=== PATIENT | female | born 1990 | race Caucasian/White ===

== ENCOUNTER 2020-02-02 19:35 | Emergency (ER) | payer MEDICAID, OTHER ==
[2020-02-02 19:42] VITALS: BP 165/94
[2020-02-02] MEDS ORDERED: DEXAMETHASONE 10 MG/ML VIAL PO STA (20:23)
[2020-02-02] MEDS ORDERED: KETOROLAC 60 MG/2 ML VIAL IM STA (20:23)
--- NOTE | 2020-02-02 20:27 | ED Physician Documentation ---
History of Present Illness - Stated complaint Stated Complaint: RT SIDED LEG PX - Chief complaint Chief Complaint: Ext Problem - History obtained from History obtained from: Patient - History of Present Illness Timing: How many days ago (2-3) Pain level max: 7 Pain level now: 5 Improved by: Rest Worsened by: Walking - Additonal information Additional information: 29-year-old female presents to the emergency department complaining of right low back pain that radiates down the right leg. Worse with movement and better with rest. No loss of bowel or bladder control. No fevers. No IV drug use. No possibility of . History of PCOS. No vaginal bleeding or discharge. Review of Systems Constitutional: denies: Fever, Chills Respiratory: denies: Cough GI: denies: Abdominal Pain, Nausea, Vomiting, Diarrhea Skin: denies: Rash Musculoskeletal: denies: Neck pain Neurologic: denies: Focal weakness, Numbness PD PAST MEDICAL HISTORY - Past Medical History Cardiovascular: Hypertension Respiratory: Asthma Endocrine/Autoimmune: Type 2 diabetes : None Psych: None Musculoskeletal: None - Past Surgical History Past Surgical History: No - Present Medications Home Medications: Ambulatory Orders Medication Instructions Recorded Confirmed Albuterol 2.5 mg INH Q4H PRN #30 neb 12/29/15 Albuterol Sulf [Ventolin Hfa 2 puffs INH Q4HR PRN #1 inhaler 05/27/16 Inhaler] Ondansetron Odt [Zofran] 4 mg TL Q6H PRN #14 tablet 05/27/16 metFORMIN [Glucophage] 500 mg PO BID #60 tablet 05/27/16 Meloxicam [Mobic] 15 mg PO DAILY PRN #20 tablet 02/02/20 predniSONE [Deltasone] 10 mg PO [id number] #42 tab 02/02/20 - Allergies Allergies/Adverse Reactions: Allergies Allergy/AdvReac Type Severity Reaction Status Date / Time No Known Drug Allergies Allergy Verified 02/02/20 19:38 - Social History Does the pt smoke?: No Smoking Status: Never smoker Does the pt drink ETOH?: Yes Does the pt have substance abuse?: Yes - Immunizations Immunizations are current?: No - POLST Patient has POLST: No PD ED PE NORMAL - Vitals Vital signs reviewed: Yes - General General: Alert and oriented X 3, No acute distress, Well developed/nourished - HEENT HEENT: Moist mucous membranes - Neck Neck: Supple, no meningeal sign - Cardiac Cardiac: RRR, Strong equal pulses - Respiratory Respiratory: No respiratory distress, Clear bilaterally - Abdomen Abdomen: Soft, Non tender, Non distended - Back Back: Other (No midline tenderness to palpation over the cervical, thoracic or lumbar spines. She is tender to palpation over the right SI joint. This reproduces her pain.) - Derm Derm: Warm and dry - Extremities Extremities: Normal ROM s pain - Neuro Neuro: Alert and oriented X 3, No motor deficit, No sensory deficit, Other (Normal bilateral lower extremity patellar and ankle jerk reflexes. Normal great toe extension bilaterally. no saddle anesthesia) - Psych Psych: Normal mood, Normal affect Results - Vitals Vitals: Vital Signs - 24 hr 02/02/20 19:38 Temperature 36.5 C Heart Rate 108 H Respiratory 14 Rate Blood Pressure 165/94 H O2 Saturation 98 Oxygen O2 Source Room air PD MEDICAL DECISION MAKING - ED course Complexity details: considered differential (No cauda equina, no spinal epidural abscess, no fracture, no aortic dissection or evidence of aneursym rupture), d/w patient ED course: Patient with what appears to be sacroiliitis on the right side. Given Toradol, dexamethasone. We will start on prednisone and meloxicam for home. No evidence of cauda equina, epidural abscess. No evidence of fracture. Patient counseled regarding signs and symptoms for which I believe and urgent re-evaluation would be necessary. Patient with good understanding of and agreement to plan and is comfortable going home at this time This document was made in part using voice recognition software. While efforts are made to proofread this document, sound alike and grammatical errors may occur. Departure - Departure Disposition: 01 Home, Self Care Clinical Impression: Sacroiliitis Sciatica Qualifiers: Laterality: right Qualified Code(s): M54.31 - Sciatica, right side Condition: Good Instructions: ED Sacroiliitis, ED Sciatica Follow-Up: Your,doctor in 1 week [Other] Prescriptions: Meloxicam [Mobic] 15 mg PO DAILY PRN #20 tablet PRN Reason: pain predniSONE [Deltasone] 10 mg PO [id number] #42 tab Comments: Use the steroids and meloxicam as prescribed. This should improve over the next few days. Return if you worsen. It is important that we decrease the inflammation in your back. Follow-up with your doctor for further care. Discharge Date/Time: 02/02/20 20:47
== END 2020-02-02 20:47 | disposition home or self-care (01) ==
LOC: ED 19:35
DX: M46.1 Sacroiliitis, not elsewhere classified (principal); M54.41 Lumbago with sciatica, right side; I10 Essential (primary) hypertension; E11.9 Type 2 diabetes mellitus without complications; Z79.84 Long term (current) use of oral hypoglycemic drugs
CPT/HCPCS: 96372; 99283; 99284

== ENCOUNTER 2020-02-27 06:39 | Emergency (ER) | payer OTHER ==
--- NOTE | 2020-02-27 07:41 | ED Physician Documentation ---
History of Present Illness - Stated complaint Stated Complaint: BACK PX - Chief complaint Chief Complaint: Back Pain - History obtained from History obtained from: Patient - Additonal information Additional information: She comes emergency department complaining of worsening back pain over the last week. Patient states she has underlying back pain which started about a month ago, but this feels somewhat different. She states she has a pressure in her low abdomen and in her right flank. She does also feel the pressure somewhat in her legs, in addition to the pain in her back that shoots down her right leg. Patient states that the shooting pain is been going on since last month, but the pressure is new. Patient denies fevers or chills. No abdominal pain per se. No nausea or vomiting. Patient denies any dysuria. No gross hematuria. Patient denies new injury. She thinks she might be . No other complaints at this time. Patient denies loss of bowel or bladder control. Review of Systems Ten Systems: 10 systems reviewed and negative Constitutional: reports: Reviewed and negative Eyes: reports: Reviewed and negative Ears: reports: Reviewed and negative Nose: reports: Reviewed and negative Throat: reports: Reviewed and negative Cardiac: reports: Reviewed and negative Respiratory: reports: Reviewed and negative GI: reports: Reviewed and negative : reports: Reviewed and negative Skin: reports: Reviewed and negative Musculoskeletal: reports: Back pain Neurologic: reports: Reviewed and negative Psychiatric: reports: Reviewed and negative Endocrine: reports: Reviewed and negative Immunocompromised: reports: Reviewed and negative PD PAST MEDICAL HISTORY - Past Medical History Past Medical History: Yes Cardiovascular: Hypertension Respiratory: Asthma Endocrine/Autoimmune: Type 2 diabetes : None Psych: None Musculoskeletal: None - Past Surgical History Past Surgical History: No - Present Medications Home Medications: Ambulatory Orders Medication Instructions Recorded Confirmed Albuterol 2.5 mg INH Q4H PRN #30 neb 12/29/15 02/27/20 Albuterol Sulf [Ventolin Hfa 2 puffs INH Q4HR PRN #1 inhaler 05/27/16 02/27/20 Inhaler] Ondansetron Odt [Zofran] 4 mg TL Q6H PRN #14 tablet 05/27/16 02/27/20 metFORMIN [Glucophage] 500 mg PO BID #60 tablet 05/27/16 02/27/20 Meloxicam [Mobic] 15 mg PO DAILY PRN #20 tablet 02/02/20 02/27/20 Cyclobenzaprine [Flexeril] 10 mg PO TID PRN #10 tablet 02/27/20 Hydrocodone/Acetaminophen 1 - 2 each PO Q6H PRN #10 tablet 02/27/20 [Hydrocodon-Acetaminophen 5-325] Ibuprofen [Motrin] 800 mg PO Q8H PRN #30 tablet 02/27/20 - Allergies Allergies/Adverse Reactions: Allergies Allergy/AdvReac Type Severity Reaction Status Date / Time No Known Drug Allergies Allergy Verified 02/27/20 07:00 - Social History Does the pt smoke?: No Smoking Status: Never smoker Does the pt drink ETOH?: Yes Does the pt have substance abuse?: Yes - Immunizations Immunizations are current?: No - POLST Patient has POLST: No PD ED PE NORMAL - Vitals Vital signs reviewed: Yes - General General: Alert and oriented X 3, No acute distress - HEENT HEENT: Atraumatic, PERRL, EOMI, Moist mucous membranes - Neck Neck: Supple, no meningeal sign - Cardiac Cardiac: RRR, No murmur, Strong equal pulses - Respiratory Respiratory: No respiratory distress, Clear bilaterally - Abdomen Abdomen: Soft, Non tender, Non distended - Back Back: No CVA TTP, Other - Derm Derm: Normal color, Warm and dry, No rash - Extremities Extremities: No deformity - Neuro Neuro: Alert and oriented X 3 - Psych Psych: Normal mood, Normal affect Results - Vitals Vitals: Oxygen O2 Source Room air - Labs Labs: Laboratory Tests 02/27/20 07:12 Urine Color YELLOW Urine Clarity CLEAR Urine pH 5.5 Ur Specific [place] >=1.030 H Urine Protein NEGATIVE Urine Glucose (UA) 500 H Urine Ketones TRACE Urine Occult Blood MODERATE H Urine Nitrite NEGATIVE Urine Bilirubin NEGATIVE Urine Urobilinogen 0.2 (NORMAL) Ur Leukocyte Esterase NEGATIVE Urine RBC 6-10 H Urine WBC 0-3 Ur Squamous Epith Cells MOD Squamous H Urine Bacteria Rare Ur Microscopic Review INDICATED Urine Culture Comments NOT INDICATED Urine HCG, Qual NEGATIVE PD MEDICAL DECISION MAKING - ED course Complexity details: reviewed results, re-evaluated patient, considered differential, d/w patient ED course: Patient was worked up with urinalysis and urine test, both of which were negative. Pt was treated symptomatically, and found to be feeling better. We have discussed home management of the sx, as well as the need for follow-up to discuss MRI. Pt states she has an appointment. We have discussed the usual indications for return. Departure - Departure Disposition: 01 Home, Self Care Clinical Impression: Back pain Qualifiers: Back pain location: low back pain Chronicity: chronic Back pain laterality: right Sciatica presence: with sciatica Sciatica laterality: sciatica of right side Qualified Code(s): M54.41 - Lumbago with sciatica, right side Condition: Stable Instructions: ED Low Back Pain Injury, ED Sciatica Prescriptions: Cyclobenzaprine [Flexeril] 10 mg PO TID PRN #10 tablet PRN Reason: Spasms Hydrocodone/Acetaminophen [Hydrocodon-Acetaminophen 5-325] 1 - 2 each PO Q6H PRN #10 tablet PRN Reason: pain Ibuprofen [Motrin] 800 mg PO Q8H PRN #30 tablet PRN Reason: PAIN &/OR FEVER Comments: Your urinalysis showed Some microscopic blood, so you were sent for CT of the abdomen and pelvis to look for kidney stone. This was negative for stone and any other organ abnormalities. Additionally, the bones of your spine did not show any major abnormality. Your test was negative. Most likely, the ongoing low back pain with sciatica is due to a musculoskeletal issue, perhaps some inflammation or disc degeneration that is causing pressure on some of the nerves of your low back is the canal and go down into your right leg. MRI is the best test to get a clear picture of this, and can be ordered as an outpatient by your doctor. You may discuss this with your doctor when you see him or her in follow-up in a week and a half. Discharge Date/Time: 02/27/20 09:02
[2020-02-27 07:58] LABS: BILIRUBIN,URINE NEGATIVE (NEGATIVE); GLUCOSE, URINE (UA) 500 mg/dL (NEGATIVE); KETONES,URINE (UA) TRACE mg/dL (NEGATIVE); LEUKOCYTE ESTERASE, URINE NEGATIVE (NEGATIVE); NITRITE,URINE NEGATIVE (NEGATIVE); OCCULT BLOOD,URINE MODERATE (NEGATIVE); PH,URINE 5.5 PH (5.0-7.5); PROTEIN,URINE NEGATIVE (NEGATIVE); UROBILINOGEN,URINE 0.2 (NORMAL) E.U./dL (NORMAL)
[2020-02-27 08:03] LABS: CLARITY,URINE CLEAR (CLEAR); HCG UR QUAL NEGATIVE
[2020-02-27] MEDS ORDERED: KETOROLAC 60 MG/2 ML VIAL IM STA (08:16)
[2020-02-27 08:20] LABS: BACTERIA,URINE Rare /HPF (None Seen); SQUAMOUS EPITHELIAL CELL,UR MOD Squamous (<= Few)
--- NOTE | 2020-02-27 08:49 | CT Report ---
PROCEDURE: Abdomen/Pelvis WO INDICATIONS: R flank pain, hematuria TECHNIQUE: Noncontrast 5 mm thick sections acquired from the diaphragms to the symphysis. 5 mm coronal and sagi ttal reformats were then performed. For radiation dose reduction, the following was used: automated exposure control, adjustment of mA and/or kV according to patient size. COMPARISON: None. FINDINGS: Image quality: Excellent. ABDOMEN: Lung bases: Lung bases are clear. Heart size is normal. Solid organs: Liver and spleen are normal in size. The liver appears diffusely fatty infiltrated Ga llbladder appears normal Pancreas is normal in contours. No adrenal nodules. Kidneys are normal in size, without hydronephrosis or nephrolithiasis. Peritoneum and bowel: Unenhanced bowel loops demonstrate normal wall thickness and caliber. No free fluid or air. Nodes and vessels: No retroperitoneal or mesenteric adenopathy by size criteria. Aorta and inferior vena cava are normal in caliber. Miscellaneous: No ventral hernias. PELVIS: Genitourinary: Bladder wall thickness is normal. Miscellaneous: No inguinal hernias or adenopathy. Note is made of a normal appendix at the right low er quadrant. Bones: No suspicious bony lesions. No vertebral body compression fractures. IMPRESSION: Source of right-sided flank pain and reported hematuria is not found. No urinary tract stone or diste ntion is seen. Several scattered pelvic phleboliths are present near the expected course of both uret ers but more superiorly there is no suspicion for presence of ureteral dilatation, inflammation or hy dronephrosis. Therefore these are considered incidental findings. Finally, a normal appendix is found at the right lower quadrant. Reviewed by: Kye Quinones MD on 02/27/2020 8:48 AM PDT Approved by: Kye Quinones MD on 02/27/2020 8:48 AM PDT Station ID: [id number]
[2020-02-27 08:57] VITALS: BP 140/101
== END 2020-02-27 09:02 | disposition home or self-care (01) ==
LOC: ED 06:39
DX: M54.41 Lumbago with sciatica, right side (principal); Z32.02 Encounter for pregnancy test, result negative; I10 Essential (primary) hypertension; E11.9 Type 2 diabetes mellitus without complications; Z79.84 Long term (current) use of oral hypoglycemic drugs
CPT/HCPCS: 74176; 81001; 81003; 81025; 87086; 96372; 99284

== ENCOUNTER 2020-05-01 08:00 | Outpatient (CLI) | payer OTHER ==
[2020-05-01 13:11] LABS: BASOPHILS # (AUTO) 0.1 10^3/uL (0.0-0.1); BASOPHILS % (AUTO) 0.9 %; EOSINOPHILS # (AUTO) 0.1 10^3/uL (0.0-0.7); EOSINOPHILS % (AUTO) 1.9 %; LYMPHOCYTES # (AUTO) 2.3 10^3/uL (1.5-3.5); LYMPHOCYTES % (AUTO) 30.8 %; MEAN CORPUSCULAR HEMOGLOBIN 26.7 pg (27.0-31.0); MEAN CORPUSCULAR HGB CONC 31.7 g/dL (32.0-36.0); MEAN CORPUSCULAR VOLUME 84.4 fL (81.0-99.0); MEAN PLATELET VOLUME 10.5 fL (7.9-10.8); MONOCYTES # (AUTO) 0.5 10^3/uL (0.0-1.0); MONOCYTES % (AUTO) 6.7 %; NEUTROPHILS # (AUTO) 4.5 10^3/uL (1.5-6.6); NEUTROPHILS % (AUTO) 59.4 %; PLT - PLATELET COUNT 312 10^3/uL (130-450); RED BLOOD COUNT 4.86 10^6/uL (4.20-5.40); RED CELL DISTRIBUTION WIDTH 13.1 % (12.0-15.0); WHITE BLOOD COUNT 7.5 x10^3/uL (4.8-10.8)
[2020-05-01 13:29] LABS: ALBUMIN 4.4 g/dL (3.2-5.5); ALBUMIN/GLOBULIN RATIO 1.2 (1.0-2.2); ALKALINE PHOSPHATASE 70 IU/L (42-121); ALT ALANINE AMINOTRANSFERASE 34 IU/L (10-60); AST ASPARTATE AMINOTRANSFERASE 31 IU/L (10-42); BILIRUBIN,TOTAL 0.7 mg/dL (0.2-1.0); BUN - BLOOD UREA NITROGEN 9 mg/dL (6-20); CALCIUM 9.4 mg/dL (8.5-10.3); CARBON DIOXIDE - CO2 25 mmol/L (21-32); CHLORIDE 102 mmol/L (101-111); CHOL/HDL RATIO 4.7 (<4.4); CHOLESTEROL 222 mg/dL; CREATININE 0.6 mg/dL (0.4-1.0); GLUCOSE 189 mg/dL (70-100); HDL CHOLESTEROL 47 mg/dL; HEMOGLOBIN A1c% 10.5 % (4.27-6.07); LDL CHOLESTEROL,CALCULATED 135 mg/dL; LDL/HDL RATIO 2.9 (<4.4); SODIUM 138 mmol/L (135-145); TOTAL PROTEIN 8.1 g/dL (6.7-8.2); VLDL CHOLESTEROL 40 mg/dL
== END 2020-05-01 23:59 | disposition home or self-care (01) ==
LOC: LAB.WCP 08:00
PROVIDERS: ATTEND Nurse Practitioner Family
DX: E66.9 Obesity, unspecified (principal); E28.2 Polycystic ovarian syndrome; Z83.3 Family history of diabetes mellitus
CPT/HCPCS: 36415; 80053; 80061; 83036; 83721; 84443; 85025

== ENCOUNTER 2021-08-19 19:34 | Emergency (ER) | payer SELFPAY ==
[2021-08-19] MEDS ORDERED: KETOROLAC 15 MG/ML VIAL IVP STA (19:50)
[2021-08-19] MEDS ORDERED: ONDANSETRON 4 MG/2 ML VIAL IVP STA (19:50)
[2021-08-19] MEDS ORDERED: HYDROmorphone 1 MG/ML CARPUJECT IVP STA (19:50)
--- NOTE | 2021-08-19 19:53 | ED Physician Documentation ---
PD HPI ABD PAIN - Stated complaint Stated Complaint: VOMITING,ABD PX - Chief complaint Chief Complaint: Abd Pain - History obtained from History obtained from: Patient - Additional information Additional information: 30-year-old woman with history of asthma and PCOS became acutely ill today with vomiting more than diarrhea and pelvic pain. She had a small menses today. That said there is a possibility of . No sick contacts or recent travel. No fevers but she has had sweats. She recently quit using THC, still uses CBD. Review of Systems Constitutional: denies: Fever, Chills Throat: reports: Reviewed and negative Cardiac: reports: Reviewed and negative Respiratory: reports: Reviewed and negative PD PAST MEDICAL HISTORY - Past Medical History Cardiovascular: Hypertension Respiratory: Asthma Endocrine/Autoimmune: Type 2 diabetes : None Psych: None Musculoskeletal: None - Past Surgical History Past Surgical History: No - Present Medications Home Medications: Ambulatory Orders Medication Instructions Recorded Confirmed Albuterol 2.5 mg INH Q4H PRN #30 neb 12/29/15 08/19/21 Albuterol Sulf [Ventolin Hfa 2 puffs INH Q4HR PRN #1 inhaler 05/27/16 08/19/21 Inhaler] metFORMIN [Glucophage] 500 mg PO BIDWM #60 tablet 08/19/21 - Allergies Allergies/Adverse Reactions: Allergies Allergy/AdvReac Type Severity Reaction Status Date / Time No Known Drug Allergies Allergy Verified 08/19/21 19:44 - Social History Does the pt smoke?: No Smoking Status: Never smoker Does the pt drink ETOH?: Yes Does the pt have substance abuse?: Yes - Immunizations Immunizations are current?: No - POLST Patient has POLST: No PD ED PE NORMAL - Vitals Vital signs reviewed: Yes - General General: Alert and oriented X 3, Other (She is hyperventilating and uncomfortable) - Cardiac Cardiac: RRR, No murmur - Respiratory Respiratory: No respiratory distress, Clear bilaterally - Abdomen Abdomen: Normal bowel sounds, Soft, Other (Mild pelvic tenderness that does not seem to lateralize) - Derm Derm: Normal color, Warm and dry - Extremities Extremities: No edema, No calf tenderness / cord - Neuro Neuro: Alert and oriented X 3, Normal speech Results - Vitals Vitals: Vital Signs - 24 hr 08/19/21 08/19/21 19:38 20:26 Temperature 96.9 C H Heart Rate 108 H 98 Respiratory 20 Rate Blood Pressure 143/100 H 135/92 H O2 Saturation 100 Oxygen O2 Source Room air - Labs Labs: Laboratory Tests 08/19/21 08/19/21 08/19/21 20:09 20:09 20:17 WBC 6.9 RBC 5.87 H Hgb 15.6 Hct 46.8 MCV 79.7 L MCH 26.6 L MCHC 33.3 RDW 12.9 Plt Count 209 MPV 9.8 Neut # (Auto) 5.0 Lymph # (Auto) 1.4 L [place] # (Auto) 0.5 Eos # (Auto) 0.0 Baso # (Auto) 0.0 Absolute Nucleated RBC 0.00 Nucleated RBC % 0.0 Sodium 133 L Potassium 3.7 Chloride 98 L Carbon Dioxide 20 L Anion Gap 15.0 H BUN 10 Creatinine 0.7 Estimated GFR (MDRD) 97 Glucose 336 H Calcium 9.2 Total Bilirubin 0.6 AST 148 H ALT 115 H Alkaline Phosphatase 70 Total Protein 8.7 H Albumin 4.2 Globulin 4.5 H Albumin/Globulin Ratio 0.9 L Lipase 29 Urine Color LT RED Urine Clarity CLOUDY Urine pH 6.5 Ur Specific [place] 1.015 Urine Protein 30 H Urine Glucose (UA) >=1000 H Urine Ketones >=80 H Urine Occult Blood LARGE H Urine Nitrite NEGATIVE Urine Bilirubin NEGATIVE Urine Urobilinogen 0.2 (NORMAL) Ur Leukocyte Esterase TRACE H Urine RBC TNTC H Urine WBC 6-10 H Urine WBC Clumps PRESENT Ur Squamous Epith Cells MOD Squamous H Urine Bacteria Few Ur Microscopic Review INDICATED Urine Culture Comments NOT INDICATED Urine HCG, Qual NEGATIVE PD MEDICAL DECISION MAKING - ED course ED course: 30-year-old woman who presents agitated with abdominal pain, after some IV Toradol, Dilaudid and Zofran she is looking and feeling much better. Tenderness now in the right upper quadrant. Of note labs are showing a glucose of 336 AST of 148 and ALT 115 without elevated bilirubin or alkaline phosphatase. She is not . Urine quite concentrated. She has been told in the past that she might have borderline diabetes but now probably has diabetes. Discussed the need for follow-up and will start some Metformin. Will obtain right upper quadrant ultrasonography given the elevated liver enzymes and tenderness there. Departure - Departure Disposition: 01 Home, Self Care Clinical Impression: Elevated liver enzymes, Type 2 diabetes mellitus Condition: Good Record reviewed to determine appropriate education?: Yes Instructions: ED Diet Diabetic, ED Hyperglycemia New Susp Diabetes Prescriptions: metFORMIN [Glucophage] 500 mg PO BIDWM #60 tablet Comments: Return tomorrow midday if not better, anytime if worsening. Continue your efforts to try to find a primary care physician, I am writing for a month worth of diabetic medication pending that follow-up. As discussed, I think your pain vomiting and diarrhea tonight was from gastroenteritis, that said we also found did have a blood sugar of 336 and moderately elevated liver enzymes which is likely due to nonalcoholic steatohepatitis. Avoid alcohol and do not take Tylenol excessively.
[2021-08-19 20:17] LABS: BASOPHILS % (AUTO) 0.6 %; EOSINOPHILS % (AUTO) 0.3 %; HCT - HEMATOCRIT 46.8 % (37.0-47.0); HGB - HEMOGLOBIN 15.6 g/dL (12.0-16.0); LYMPHOCYTES # (AUTO) 1.4 10^3/uL (1.5-3.5); LYMPHOCYTES % (AUTO) 19.5 %; MEAN CORPUSCULAR HEMOGLOBIN 26.6 pg (27.0-31.0); MEAN CORPUSCULAR HGB CONC 33.3 g/dL (32.0-36.0); MEAN CORPUSCULAR VOLUME 79.7 fL (81.0-99.0); MEAN PLATELET VOLUME 9.8 fL (7.9-10.8); MONOCYTES # (AUTO) 0.5 10^3/uL (0.0-1.0); MONOCYTES % (AUTO) 7.6 %; NEUTROPHILS % (AUTO) 71.6 %; PLT - PLATELET COUNT 209 10^3/uL (130-450); RED BLOOD COUNT 5.87 10^6/uL (4.20-5.40); RED CELL DISTRIBUTION WIDTH 12.9 % (12.0-15.0); WHITE BLOOD COUNT 6.9 x10^3/uL (4.8-10.8)
[2021-08-19 20:30] LABS: ALBUMIN 4.2 g/dL (3.2-5.5); ALBUMIN/GLOBULIN RATIO 0.9 (1.0-2.2); BILIRUBIN,TOTAL 0.6 mg/dL (0.2-1.0); CALCIUM 9.2 mg/dL (8.5-10.3); CREATININE 0.7 mg/dL (0.4-1.0); POTASSIUM 3.7 mmol/L (3.5-5.0); TOTAL PROTEIN 8.7 g/dL (6.7-8.2)
[2021-08-19 20:31] LABS: BILIRUBIN,URINE NEGATIVE (NEGATIVE); GLUCOSE, URINE (UA) >=1000 mg/dL (NEGATIVE); KETONES,URINE (UA) >=80 mg/dL (NEGATIVE); LEUKOCYTE ESTERASE, URINE TRACE (NEGATIVE); NITRITE,URINE NEGATIVE (NEGATIVE); OCCULT BLOOD,URINE LARGE (NEGATIVE); PH,URINE 6.5 PH (5.0-7.5); PROTEIN,URINE 30 mg/dL (NEGATIVE); UROBILINOGEN,URINE 0.2 (NORMAL) E.U./dL (NORMAL)
[2021-08-19 20:32] LABS: CLARITY,URINE CLOUDY (CLEAR)
[2021-08-19 20:33] LABS: HCG UR QUAL NEGATIVE
[2021-08-19 20:38] LABS: BACTERIA,URINE Few /HPF (None Seen); RBC,URINE TNTC /HPF (0-5); SQUAMOUS EPITHELIAL CELL,UR MOD Squamous (<= Few); WBC CLUMPS,URINE PRESENT
[2021-08-19] MEDS ORDERED: SODIUM CHLORIDE 0.9% 1,000 ML IV STA (20:42)
[2021-08-19] MEDS ORDERED: ONDANSETRON ODT 4 MG TABLET TL STA (21:32)
[2021-08-19] MEDS ORDERED: metFORMIN 500 MG TABLET PO STA (21:32)
--- NOTE | 2021-08-19 21:44 | Ultrasound Report ---
PROCEDURE: Abdomen Limited INDICATIONS: RUQ pain, elev liver enz TECHNIQUE: Real-time focused scanning was performed of the abdomen, with image documentation. COMPARISON: None FINDINGS: Liver is suboptimally visualized secondary to body habitus but demonstrates diffusely incr eased echogenicity and normal in size. Gallbladder is within normal limits. No biliary ductal dilatat ion. Pancreas is not well seen but is within normal limits as visualized. Right kidney is grossly unr emarkable. IMPRESSION: Limited evaluation demonstrating no acute process. Hepatic steatosis. Reviewed by: Nicolas Cordova MD on 08/19/2021 9:42 PM PST Approved by: Nicolas Cordova MD on 08/19/2021 9:42 PM PST Station ID: [id number]
[2021-08-19 21:58] VITALS: BP 158/72
== END 2021-08-19 21:58 | disposition home or self-care (01) ==
LOC: ED 19:34
DX: E11.9 Type 2 diabetes mellitus without complications (principal); R74.01 Elevation of levels of liver transaminase levels
CPT/HCPCS: 36415; 76705; 80053; 81001; 81025; 83690; 85025; 96361; 96374; 99284; A9270; J1170; Q0162; 81003; 87086

== ENCOUNTER 2021-12-09 07:22 | Outpatient (CLI) | payer MEDICAID ==
[2021-12-09 12:23] LABS: BASOPHILS % (AUTO) 0.4 %; EOSINOPHILS # (AUTO) 0.3 10^3/uL (0.0-0.7); HGB - HEMOGLOBIN 13.5 g/dL (12.0-16.0); LYMPHOCYTES # (AUTO) 2.2 10^3/uL (1.5-3.5); LYMPHOCYTES % (AUTO) 25.5 %; MEAN CORPUSCULAR HEMOGLOBIN 27.1 pg (27.0-31.0); MEAN CORPUSCULAR HGB CONC 32.1 g/dL (32.0-36.0); MEAN CORPUSCULAR VOLUME 84.2 fL (81.0-99.0); MEAN PLATELET VOLUME 10.5 fL (7.9-10.8); MONOCYTES # (AUTO) 0.7 10^3/uL (0.0-1.0); MONOCYTES % (AUTO) 8.4 %; NEUTROPHILS # (AUTO) 5.2 10^3/uL (1.5-6.6); NEUTROPHILS % (AUTO) 61.3 %; PLT - PLATELET COUNT 293 10^3/uL (130-450); RED BLOOD COUNT 4.99 10^6/uL (4.20-5.40); RED CELL DISTRIBUTION WIDTH 13.4 % (12.0-15.0); WHITE BLOOD COUNT 8.4 x10^3/uL (4.8-10.8)
[2021-12-09 12:31] LABS: ALBUMIN 3.8 g/dL (3.2-5.5); ALKALINE PHOSPHATASE 76 IU/L (42-121); ALT ALANINE AMINOTRANSFERASE 26 IU/L (10-60); AST ASPARTATE AMINOTRANSFERASE 22 IU/L (10-42); BILIRUBIN,TOTAL 0.3 mg/dL (0.2-1.0); BUN - BLOOD UREA NITROGEN 10 mg/dL (6-20); CALCIUM 9.5 mg/dL (8.5-10.3); CARBON DIOXIDE - CO2 27 mmol/L (21-32); CHLORIDE 101 mmol/L (101-111); CHOL/HDL RATIO 5.2 (<4.4); CHOLESTEROL 214 mg/dL; CREATININE 0.8 mg/dL (0.4-1.0); GFR - MDRD 83 (>89); GLUCOSE 393 mg/dL (70-100); HDL CHOLESTEROL 41 mg/dL; LDL CHOLESTEROL,CALCULATED 95 mg/dL; LDL/HDL RATIO 2.3 (<4.4); SODIUM 139 mmol/L (135-145); TOTAL PROTEIN 7.6 g/dL (6.7-8.2); TRIGLYCERIDES 391 mg/dL; VLDL CHOLESTEROL 78 mg/dL
[2021-12-09 12:42] LABS: THYROID STIMULATING HORMONE 3.27 uIU/mL (0.34-5.60)
== END 2021-12-09 07:23 | disposition home or self-care (01) ==
LOC: LAB.N 07:22
PROVIDERS: ATTEND Nurse Practitioner
DX: E11.9 Type 2 diabetes mellitus without complications (principal); Z13.220 Encounter for screening for lipoid disorders; Z13.29 Encounter for screening for other suspected endocrine disorder
CPT/HCPCS: 36415; 80053; 80061; 81599; 83036; 83721; 84443; 85025

== ENCOUNTER 2022-02-04 09:04 | Outpatient (CLI) | payer MEDICAID ==
[2022-02-04 11:59] LABS: CREATININE,URINE 151.9 mg/dL; MICROALBUMIN,URINE 0.3 mg/dL (0-300.0)
[2022-02-04 12:08] LABS: ESTIMATED AVERAGE GLUCOSE 240 mg/dL (70-100)
[2022-02-04 12:09] LABS: THYROID STIMULATING HORMONE 2.65 uIU/mL (0.34-5.60)
== END 2022-02-04 09:05 | disposition home or self-care (01) ==
LOC: LAB.N 09:04
PROVIDERS: ATTEND Nurse Practitioner
DX: E11.9 Type 2 diabetes mellitus without complications (principal); E66.9 Obesity, unspecified; R53.83 Other fatigue
CPT/HCPCS: 36415; 82043; 82570; 83036; 84443

== ENCOUNTER 2024-01-20 15:06 | Emergency (ER) | payer SELFPAY ==
[2024-01-20 15:15] VITALS: O2SAT 100
--- NOTE | 2024-01-20 16:54 | ED Physician Documentation ---
PD HPI URI - Stated complaint Stated Complaint: BODY ACHES - Chief complaint Chief Complaint: General - History obtained from History obtained from: Patient - History of Present Illness Timing - onset: How many days ago (few) Timing duration: Days Timing details: Gradual onset, Still present Associated symptoms: Chills, NVD (nausea without vomiting.), Other (dysuria). No: Nasal congestion, Dry cough, Dyspnea Contributing factors: No: Sick contact, Travel, Immunocompromised Similar symptoms before: Has not had sx before Review of Systems Constitutional: reports: Myalgias, Fatigue. denies: Fever Nose: denies: Rhinorrhea / runny nose, Congestion Throat: denies: Sore throat Cardiac: denies: Chest pain / pressure Respiratory: denies: Cough GI: reports: Nausea. denies: Vomiting, Diarrhea : reports: Dysuria PD PAST MEDICAL HISTORY - Past Medical History Past Medical History: Yes Cardiovascular: Hypertension Respiratory: Asthma Endocrine/Autoimmune: Type 2 diabetes [employer]: Other : None Psych: Anxiety Musculoskeletal: None - Past Surgical History Past Surgical History: No - Present Medications Home Medications: Ambulatory Orders Medication Instructions Recorded Confirmed metFORMIN [Glucophage] 500 mg PO BIDWM #60 tablet 08/19/21 03/09/22 Insulin Glargine [Lantus Solostar] 25 units SUBQ QDBREAKFAST 03/09/22 03/09/22 HYDROcod/ACETAM 5/325 [[place]cher 5/325] 1 ea PO Q6H PRN #10 tablet 01/20/24 Ondansetron Odt [Zofran] 4 mg TL Q6H PRN #10 tablet 01/20/24 metroNIDAZOLE [Flagyl] 500 mg PO BID 7 Days #14 tablet 01/20/24 - Allergies Allergies/Adverse Reactions: Allergies Allergy/AdvReac Type Severity Reaction Status Date / Time No Known Drug Allergies Allergy Verified 01/20/24 15:08 - Social History Does the pt smoke?: No Smoking Status: Never smoker Does the pt drink ETOH?: Yes Does the pt have substance abuse?: Yes - Immunizations Immunizations are current?: No - POLST Patient has POLST: No PD ED PE NORMAL - Vitals Vital signs reviewed: Yes - General General: Alert and oriented X 3, Well developed/nourished - HEENT HEENT: Pharynx benign - Neck Neck: Supple, no meningeal sign, No adenopathy - Cardiac Cardiac: RRR, No murmur - Respiratory Respiratory: No respiratory distress, Clear bilaterally - Abdomen Abdomen: Normal bowel sounds, Soft, Non distended, No organomegaly, Other (mildly tender suprapubic asrea. Bladder not distended. ) - Female Female : Deferred - Rectal Rectal: Deferred - Back Back: No CVA TTP - Derm Derm: Normal color, Warm and dry - Neuro Neuro: Alert and oriented X 3, No motor deficit, Normal speech Results - Vitals Vitals: Oxygen O2 Source Room air - Labs Labs: Laboratory Tests 01/20/24 01/20/24 01/20/24 17:27 17:37 18:30 Urine Color LT. YELLOW Urine Clarity HAZY Urine pH 7.5 Ur Specific [place] <=1.005 Urine Protein NEGATIVE Urine Glucose (UA) >=1000 H Urine Ketones TRACE Urine Occult Blood NEGATIVE Urine Nitrite NEGATIVE Urine Bilirubin NEGATIVE Urine Urobilinogen 0.2 (NORMAL) Ur Leukocyte Esterase NEGATIVE Urine RBC 0-5 Urine WBC 0-3 Ur Squamous Epith Cells MANY Squamous H Amorphous Sediment Few Urine Bacteria Moderate H Urine Trichomonas PRESENT H Ur Microscopic Review INDICATED Urine Culture Comments NOT INDICATED Nasal Adenovirus (PCR) NOT DETECTED Nasal B. parapertussis DNA (PCR) NOT DETECTED Nasal Coronavir 229E PCR NOT DETECTED Nasal Coronavir HKU1 PCR NOT DETECTED Nasal Coronavir NL63 PCR NOT DETECTED Nasal Coronavir OC43 PCR NOT DETECTED Nasal Enterovir/Rhinovir PCR NOT DETECTED Nasal Influenza B PCR NOT DETECTED Nasal Influenza A PCR NOT DETECTED Nasal Parainfluen 1 PCR NOT DETECTED Nasal Parainfluen 2 PCR NOT DETECTED Nasal Parainfluen 3 PCR NOT DETECTED Nasal Parainfluen 4 PCR NOT DETECTED Nasal RSV (PCR) NOT DETECTED Nasal B.pertussis DNA PCR NOT DETECTED Nasal C.pneumoniae (PCR) NOT DETECTED Davis Human Metapneumo PCR NOT DETECTED Nasal M.pneumoniae (PCR) NOT DETECTED Nasal SARS-CoV-2 (PCR) NOT DETECTED Chlam trachomat DNA PCR NEGATIVE N.gonorrhoeae DNA (PCR) NEGATIVE T. vaginalis (PCR) POSITIVE A PD Medical Decision Making - ED course Complexity details: reviewed results (viral PCR negative. UA positive with Trich reported. ), considered differential (sounds flu like with aches, nausea, weakness, chills. but no URI syptoms per se. Does have some dysuria and back pains. COnsider UTI. ), d/w patient Departure - Departure Disposition: 01 Home, Self Care Clinical Impression: Trichomonas vaginitis, Nausea, Body aches Condition: Stable Record reviewed to determine appropriate education?: Yes Instructions: ED Muscle Aching, ED Vaginitis Trichomonas Prescriptions: metroNIDAZOLE [Flagyl] 500 mg PO BID 7 Days #14 tablet HYDROcod/ACETAM 5/325 [Thatcher 5/325] 1 ea PO Q6H PRN #10 tablet PRN Reason: Pain Ondansetron Odt [Zofran] 4 mg TL Q6H PRN #10 tablet PRN Reason: Nausea / Vomiting Comments: Your symptoms are suggestive of flulike syndrome. We did do a respiratory panel no swab test to look for common viruses. This was negative. It is possible to have a flu like illness without being in 1 of those common viruses. However since the test is negative and you do have signs of a urinary tract infection/vaginitis, would be more inclined to think your general symptoms are related to that infection. See how you feel generally overall in the next few days. I assume the antibiotics for the urinary tract will improve things. You are having some back pain as well as some urinary discomfort. The urine test did not show an obvious other bacterial infection but there was presence of some trichomonas. This is commonly more of a vaginal colonization or infection but it can get into the urine and cause bladder as well. You could be having urinary tract and kidney type pains from this urinary tract infection. We are pending culture of the urine to see if other germs are present as well. Also doing a vaginal swab to look for other bacterial or yeast vaginitis germs. For now we will treat the trichomonas with Flagyl twice daily for a week. Stay well-hydrated. Tylenol or ibuprofen if needed for pains or fevers. Ondansetron if needed for nausea and add hydrocodone/acetaminophen if needed for worse pains. See how well you improve treating the trichomonas and if there is any viral type illness as well. Will call if there are other results on the cultures that need particular treating. I sent new prescriptions to preferred pharmacy. I am prescribing a short course of narcotic pain medication for you. These are potentially dangerous and addictive medications that should be used carefully. These medications may constipate you. Take an [id number] stool softener such as docusate twice daily with plenty of water while taking these medications. If you go 24 hours without a bowel movement, take [id number] MiraLAX, per package instructions. Do not drink or drive while taking these medications. If you received narcotic or sedating medications while in the emergency department do not drive for 24 hours. Store this medication in a safe, secure place and out of reach of children. It is a violation of federal law to give or sell this medication to another person or to use in a manner other than prescribed. The ED will not refill narcotic prescriptions, including prescriptions lost or stolen. You can dispose of unwanted medications at the [facility]'s office or at several pharmacies such as [facility]. Forms: PCP List Discharge Date/Time: 01/20/24 19:25
[2024-01-20 17:31] LABS: BILIRUBIN,URINE NEGATIVE (NEGATIVE); GLUCOSE, URINE (UA) >=1000 mg/dL (NEGATIVE); KETONES,URINE (UA) TRACE mg/dL (NEGATIVE); LEUKOCYTE ESTERASE, URINE NEGATIVE (NEGATIVE); NITRITE,URINE NEGATIVE (NEGATIVE); OCCULT BLOOD,URINE NEGATIVE (NEGATIVE); PH,URINE 7.5 PH (5.0-7.5); PROTEIN,URINE NEGATIVE (NEGATIVE); UROBILINOGEN,URINE 0.2 (NORMAL) E.U./dL (NORMAL)
[2024-01-20 17:36] LABS: CLARITY,URINE HAZY (CLEAR)
[2024-01-20 17:42] LABS: AMORPHOUS SEDIMENT,UR Few /LPF; BACTERIA,URINE Moderate /HPF (None Seen); RBC,URINE 0-5 /HPF (0-5); SQUAMOUS EPITHELIAL CELL,UR MANY Squamous (<= Few); TRICHOMONAS,URINE PRESENT (None Seen); WBC,URINE 0-3 /HPF (0-5)
[2024-01-20] MEDS: HYDROcod/ACETAM 5/325 MG TABLET PO STA (17:45)
[2024-01-20] MEDS: ONDANSETRON ODT 4 MG TABLET TL STA (17:45)
[2024-01-20] MEDS: KETOROLAC 30 MG/ML VIAL IM STA (17:45)
[2024-01-20] MEDS: ACETAMINOPHEN 325 MG TABLET PO STA (17:45)
[2024-01-20 18:39] LABS: B. PARAPERTUSSIS- RESP PCR PAN NOT DETECTED; B. PERTUSSIS- RESP PCR PANEL NOT DETECTED; C. PNEUMONIAE- RESP PCR PANEL NOT DETECTED; CORONAVIRUS 229E-RESP PCR NOT DETECTED; CORONAVIRUS HKU1-RESP PCR NOT DETECTED; CORONAVIRUS NL63-RESP PCR NOT DETECTED; CORONAVIRUS OC43-RESP PCR NOT DETECTED; HUMAN METAPNEUMOVIRUS NOT DETECTED; INFLUENZA A- RESP PCR PANEL NOT DETECTED; INFLUENZA B - RESP PCR PANEL NOT DETECTED; M. PNEUMONIAE- RESP PCR PANEL NOT DETECTED; PARAINFLUENZA VIRUS 1 NOT DETECTED; PARAINFLUENZA VIRUS 2 NOT DETECTED; PARAINFLUENZA VIRUS 3 NOT DETECTED; PARAINFLUENZA VIRUS 4 NOT DETECTED; RHINOVIRUS/ENTEROVIRUS NOT DETECTED; RSV- RESP PCR PANEL NOT DETECTED; SARS-CoV-2 -RESP PCR PANEL NOT DETECTED
[2024-01-20] MEDS: ONDANSETRON ODT 4 MG Prepack 2 TL PRN (18:45)
[2024-01-20] MEDS: HYDROcod/ACET 5/325 Prepack 4 PO STA (18:45)
[2024-01-20] MEDS: metroNIDAZOLE 250 MG TABLET PO STA (18:47)
[2024-01-20 19:30] VITALS: BP 140/95
[2024-01-20 21:56] LABS: CHLAMYDIA TRACHOMATIS DNA NEGATIVE (NEGATIVE); NEISSERIA GONORRHOEAE DNA NEGATIVE (NEGATIVE); TRICHOMONAS VAGINALIS DNA POSITIVE (NEGATIVE)
== END 2024-01-20 19:25 | disposition home or self-care (01) ==
LOC: ED 15:06
DX: A59.01 Trichomonal vulvovaginitis (principal); R11.0 Nausea; M79.10 Myalgia, unspecified site; I10 Essential (primary) hypertension; E11.9 Type 2 diabetes mellitus without complications; Z79.84 Long term (current) use of oral hypoglycemic drugs; Z79.4 Long term (current) use of insulin; Z79.899 Other long term (current) drug therapy
CPT/HCPCS: 81001; 87491; 87591; 87633; 87661; 99283; A9270; Q0162; 81003; 87086